=== PATIENT | male | born 1955 | race Caucasian/White ===

== ENCOUNTER → 2018-06-17 | Outpatient (CLI) | payer BC ==
--- NOTE | 2018-06-17 14:02 | ECHOS ---
STRESS ECHOCARDIOGRAM MEDICATIONS: Atorvastatin, Librax, lisinopril, metformin, doxycycline. BASELINE HEART RATE: 75 BASELINE BLOOD PRESSURE: 138/47 MAXIMUM HEART RATE: 149 MAXIMUM BLOOD PRESSURE: 176/64 85% MPHR: 135 100% MPHR: 159 METS: 12.1 MAXIMUM STAGE REACHED: III TOTAL EXERCISE TIME: 11:00 CLINICAL INFORMATION: Baseline rhythm is sinus mechanism, rate of 75, normal axis and intervals, poor R-wave progression. Baseline blood pressure 138/47 mmHg. Patient exercised on Geronimo protocol for 11 minutes, reaching peak rate of 149 beats per minute which is equal to 93% maximum predicted heart rate. Peak blood pressure 176/64 mmHg. Test was terminated due to fatigue. There was no chest pain. Electrocardiograph monitoring revealed no evidence of diagnostic ischemic ST deviation. FINDINGS: Baseline echocardiogram revealed normal wall thickening and motion. At peak exercise, there was normal wall motion augmentation with no hypokinesis or dyskinesis. CONCLUSION: 1. Good exercise tolerance was normal electrocardiographic response to exercise. 2. Normal stress echocardiogram with no evidence of stress-induced ischemia. MMODL / IJN: [id number] /
== END | disposition home or self-care (01) ==
LOC: RADNMMAIN 10:39
PROVIDERS: ATTEND Internal Medicine
DX: R07.2 Precordial pain (principal)
CPT/HCPCS: 93351

== ENCOUNTER → 2019-08-11 | Outpatient (CLI) | payer BC ==
--- NOTE | 2019-08-11 08:21 | US ---
EXAMINATION TYPE: US abdomen complete DATE OF EXAM: 08/11/2019 COMPARISON: CT urogram May 13, 2015 CLINICAL HISTORY: R74.8 Elevated Liver Enzymes. Elevated liver enzymes EXAM MEASUREMENTS: Liver Length: 15.6 cm Gallbladder Wall: 0.3 cm CBD: 0.3 cm Spleen: 10.8 cm Right Kidney: 11.5 x 6.3 x 5.4 cm Left Kidney: 11.7 x 5.9 x 5.3 cm Pancreas: visualized portions wnl, limited by overlying midline bowel gas Liver: 1.5 x 1.2 x 1.3cm cyst left lobe Gallbladder: wnl Evidence for sonographic Swann's sign: no CBD: visualized portions wnl, limited by overlying bowel gas Spleen: visualized portions wnl, limited by overlying bowel gas Right Kidney: wnl Left Kidney: wnl Upper IVC: wnl Abd Aorta: wnl The visualized liver is heterogeneously hyperechoic with simple appearing thin-walled 1.2 cm cyst lef t hepatic lobe redemonstrated. Evaluation for focal masses suboptimal due to the heterogeneity. No ne w intrahepatic ductal dilatation is seen. The intrahepatic portion of the IVC and visualized abdomina l aorta are within normal limits. There is no evidence of cholelithiasis. Common bile duct is unrem arkable. The visualized portions of the pancreas are homogenous. Portions of distal body and tail a re obscured by overlying bowel gas on images saved. The spleen is unremarkable. Kidneys are symmetri c and free of hydronephrosis. No renal lesions are seen. IMPRESSION: New heterogeneous hyperechoic appearance liver could reflect product of diffuse fatty inf iltration or underlying hepatocellular disease. Imaging guided random biopsy for tissue analysis can be performed if desired.
== END ==
LOC: RADUSWWP 07:27
PROVIDERS: ATTEND Internal Medicine
DX: R93.2 Abnormal findings on diagnostic imaging of liver and biliary tract (principal)
CPT/HCPCS: 76700

== ENCOUNTER 2022-11-20 06:38 | Day surgery (SDC) | payer BC, MEDICARE ==
[2022-11-20 07:23] LABS: Glucose,Whole Blood 100 mg/dL (70-110)
[2022-11-20] MEDS ORDERED: LACTATED RINGERS 1,000 ML IV ONE (07:24)
[2022-11-20 07:27] VITALS: RESP 16; TEMP 98.5
[2022-11-20] MEDS ORDERED: LACTATED RINGERS 1,000 ML IV SCH (07:35)
[2022-11-20] MEDS ORDERED: LIDOCAINE 2% INJ 20 MG/ML (2 ML VIAL) ONE (07:48)
[2022-11-20] MEDS ORDERED: PROPOFOL 10 MG/ML 20 ML VIAL IV ONE (07:48)
--- NOTE | 2022-11-20 08:08 | P.PCN ---
Date of Procedure: 11/20/22 Procedure(s) Performed: BRIEF HISTORY: Patient is a 67-year-old pleasant male scheduled for an elective colonoscopy as a part of evaluation of right lower quadrant abdominal pain and change in bowel habits for the last 15 years duration. PROCEDURE PERFORMED: Colonoscopy with random biopsies. PREOPERATIVE DIAGNOSIS: Right lower quadrant abdominal pain and change in bowel habits. IV sedation per Anesthesia. PROCEDURE: After informed consent was obtained, the patient, was brought into the endoscopy unit. IV sedation was administered by Anesthesia under continuous monitoring. Digital rectal examination was normal. Initially the Olympus CF-160 flexible video colonoscope was then inserted in the rectum, gradually advanced into the cecum without any difficulty. Careful examination was performed as the scope was gradually being withdrawn. Ileocecal valve and the appendiceal orifice were visualized and appeared normal. Prep was excellent. Mucosa of the cecum, appeared normal. In the ascending colon there was a 3-4 mm polyp that was removed by cold biopsy. Rest of the ascending colon, transverse colon, descending colon, sigmoid colon, and rectum appeared normal. Random biopsies were done from the descending colon to rule out microscopic/collagenous colitis. Retroflexion was performed in the rectum and no lesions were seen. The patient tolerated the procedure well. IMPRESSION: 3-4 mm ascending colon polyp status post cold biopsy Rest of the colon appeared normal RECOMMENDATIONS: Findings of this examination were discussed with the patient as well as his family. He was advised to follow with the biopsy results and have a repeat colonoscopy in 5 years based the biopsy.
[2022-11-20 08:45] VITALS: BP 130/83; PULSE 60
== END 2022-11-20 09:05 | disposition home or self-care (01) ==
LOC: ORWHC2ENDO 06:38
PROVIDERS: ATTEND Internal Medicine Gastroenterology
DX: K63.5 Polyp of colon (principal); K58.9 Irritable bowel syndrome, unspecified; I10 Essential (primary) hypertension; E11.9 Type 2 diabetes mellitus without complications; Z79.84 Long term (current) use of oral hypoglycemic drugs; Z79.899 Other long term (current) drug therapy
CPT/HCPCS: 88305; 45380; J2704; J2001

== ENCOUNTER → 2023-02-14 | Outpatient (CLI) | payer MEDICARE ==
[2023-02-14 11:07] LABS: African American GFR (CKD) >90 (>60 ml/min/1.73 sqM); Blood Urea Nitrogen 21 mg/dL (9-20); Non-African American GFR(CKD) >90 (>60 ml/min/1.73 sqM)
--- NOTE | 2023-02-15 08:15 | CT ---
EXAMINATION TYPE: CT abdomen pelvis wo/w con CT DLP: 1471.4 mGycm, Automated exposure control for dose reduction was used. DATE OF EXAM: 02/14/2023 12:26 PM COMPARISON: CT urogram 05/13/2015, abdominal ultrasound 08/11/2019 CLINICAL INDICATION:Male, 67 years old with history of R10.31 RLQ pain; abdominal pain, bloating, tariq rrhea TECHNIQUE: Multiphase CT of the abdomen and pelvis before and after the administration of 100 cc of Isovue 300 IV contrast material and oral contrast. Coronal and sagittal reformats were performed. FINDINGS: LOWER CHEST: Visualized lung bases are clear. Bilateral gynecomastia. ABDOMEN LIVER: The left hepatic lobe 1.3 cm cyst. GALLBLADDER AND BILE DUCTS: Unremarkable. PANCREAS: Unremarkable. SPLEEN: Unremarkable. ADRENAL GLANDS: Unremarkable. KIDNEYS AND URETERS: No evidence of hydronephrosis or renal calculus. The kidneys enhance symmetrical ly without suspicious focal lesion. Contrast is demonstrated within both collecting systems on the de layed phase. PELVIS BLADDER: Unremarkable REPRODUCTIVE: Unremarkable. ABDOMEN & PELVIS STOMACH AND BOWEL: Stomach and duodenum are unremarkable. Enteric contrast reaches the distal small b owel. This limits evaluation the colon. The appendix is within normal limits. No focal bowel wall thi ckening or surrounding inflammatory changes. No evidence of bowel obstruction. PERITONEUM: No evidence of pneumoperitoneum or free fluid. VASCULATURE: Mild atherosclerotic calcifications are present throughout the abdominal aorta and its b ranches. No evidence of aortic aneurysm. MUSCULOSKELETAL: No acute osseous abnormalities. Similar grade 2 anterolisthesis of L5 on S1 with manda ateral pars defects. Mild multilevel degenerative disc disease. LYMPH NODES: No gross evidence for lymphadenopathy. SOFT TISSUE/ABDOMINAL WALL: Small bilateral fat filled inguinal hernias. IMPRESSION: 1. No acute abdominal/pelvic process. 2. Similar grade 2 anterolisthesis of L5 on S1 with bilateral pars defects.
== END | disposition home or self-care (01) ==
LOC: RADCTMAIN 10:19
PROVIDERS: ATTEND Internal Medicine Gastroenterology
DX: R10.31 Right lower quadrant pain (principal); M43.17 Spondylolisthesis, lumbosacral region
CPT/HCPCS: 82565; 84520; 74178; 36415; Q9967